=== PATIENT | female | born 1970 | race Caucasian/White ===

== ENCOUNTER 2024-08-10 08:56 | Emergency (ER) | payer OTHER, SELFPAY ==
--- OUTSIDE RECORDS SUMMARY | 2024-08-10 08:59 | XMS_ITS | Clinical Summary ---
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 120 mL 3 Active Active Problems No known active problems Immunizations Immunization Administration Dates Next Due Influenza, IIV4 01/17/2021,03/27/2018,02/19/2017 Influenza,CCIIV4 PRESERV FREE 02/10/2020 Td (Age >=7 Years) 03/27/2018 Tdap 04/09/2008 Family History Medical History Relation Name Comments Heart attack Brother 37yo Depression Child Coronary artery disease Father Diabetes Father Heart attack Father 36yo first hear t attack Diabetes Maternal Grandfather Leukemia Maternal Grandmother Throat cancer Maternal Grandmother decrea sed 68 No Known Problems Mother Relation Name Status Comments Brother Child Father Maternal Grandfather Maternal Grandmother Mother Social History Tobacco Use Types Packs/Day Years Used Date Smoking Tobacco: Former Smokeless Tobacco: Never Tobacco Cessation:Counseling Given: Yes Alcohol Use Standard Drinks/Week Comments Yes 0 (1 standard drink = 0.6 oz pur e alcohol) 3-4 per week PHQ-2 Answer Date Recorded PHQ-2 TOTAL SCORE 0 01/17/2021 Social Connections Answer Date Recorded Frequency of Communication with Friends and Fami ly Not on file 12/20/2023 Financial Resource Strain Answer Date R ecorded Difficulty of Paying Living Expenses 3 12/18/2022 Difficulty of Paying Living Expenses Not on file 12/18/2022 Food Insecurity Answer Date Recorded Worried About Running Out of Food in the Last Ye ar 1 12/18/2022 Transportation Needs Answer Date Record ed Lack of Transportation (Medical) 1 12/18/2022 Housing Stability Answer Date Recorded Unable to Pay for Housing in the Last Year 1 12/18/2022 Comments No Sex and Gender Information Value Date Recorded Sex Assigned at Not on file Legal Sex Female 7:00 AM [employer] Gender Identity Not on file Sexual Orientation Not on file Obstetrics History Last Filed Vital Signs Vital Sign Reading Time Taken Comments Blood Pressure 123/82 12/18/2022 2:11 PM CDT Pulse 95 12/18/2022 2:11 PM CDT Temperature 37.1 C (98.7 F) 12/18/2022 2:11 PM CDT Respiratory Rate 14 05/06/2019 2:01 PM [employer] Oxygen Saturation 97% 12/18/2022 2:11 PM CDT Inhaled Oxygen Concentration - - Weight 85.5 kg (188 lb 9.6 oz) 12/18/2022 2:11 P M CDT Height 155.4 cm (5' 1.18) 12/18/2022 2:11 PM CD T Body Mass Index 35.43 12/18/2022 2:11 PM CDT Plan of Treatment Health Maintenance Due Date Last Done Comments HIV for age 15-65 08/24/1987 Hepatitis C screening for ag e 18-79 1990 Colonoscopy through age 75 2017 Mammogram for age 45-75 2017 Depression screening for age 12+ 01/17/2022 01/17/2021, 05/23/2019, 05/23/2019, Additional history exists Pneumococcal series for age 50+ (1 of 1 - PCV) 2022 Zoster (shingles) series for age 50+ (1 of 2) 2022 BMI (ht and wt on same day) for age 18+ 12/19/2023 12/18/2022, 01/17/2021, 05/28/2019, Additional history exists COVID-19 vaccine series ( - season) 2023 03/30/2021, 08/18/2020, 07/16/2020 Influenza Vaccine (Season Ended) 2024 01/17/2021, 02/10/2020, 03/27/2018, Additional history exists Lipids for age 45-75 01/17/2026 01/17/2021, 03/27/20 18 Pap test for age 21-65 01/17/2026 , 01/17/2021, 03/27/2018 Tetanus booster 03/27/2028 03/27/2018, 04/09/2008 Tdap Completed 04/09/2008 Procedures Procedure Name Priority Date/Time Associated Diagnosis Comments LIPID PANEL W REFLEX MEASURED LDL Routine 01/17/2021 9:00 AM CDT Hyperlipidemia, unspecified hyperlipidemia type Family history of early CAD HPV HIGH RISK Routine 01/17/2021 8:49 AM CDT Cervical cancer screening from Last 3 Months or Most Recently Relevant to Health Maintenance Results * (ABNORMAL) LIPID PANEL W REFLEX MEASURED LDL (01/17/2021 9:00 AM CDT) CHOLESTEROL,TOTAL 394(H) 100 - 199 mg/dL 01/17/2021 6:21 PM CDT [facility] TRIGLYCERIDES 173(H) <150 mg/dL 01/17/2021 6:21 PM CDT [facility] HDL CHOLESTEROL 45 >40 mg/dL 6:21 PM CDT [facility] NON-HDL CHOLESTEROL 349(H) <145 mg/dl 01/17/2021 6:21 PM CDT [facility] CHOL/HDL RATIO 8.76(H) <4.50 01/17/2021 6:21 PM CDT [facility] LDL CHOLESTEROL 314(H) <=130 mg/dL 01/17/2021 6:21 PM CDT [facility] VLDL CHOLESTEROL 35(H) <=30 mg/dL 01/17/2021 6:21 PM CDT [facility] PROVIDER ORDERED STATUS RANDOM 01/17/2021 6:21 PM CDT [facility] Blood BLOOD SPECIMEN / Unknown Venipuncture / Unknown 01/17/2021 9:00 AM CDT 01/17/2021 9:00 AM CDT Monisha Domingo DO CHEMISTRY Final Resu lt [facility] [address] [place] [address], [place] * HPV HIGH RISK (01/17/2021 8:49 AM CDT) TYPE 16 Negative Negative 01/19/2021 11:39 AM CDT [facility] TYPE 18 Negative Negative 01/19/2021 11:39 AM CDT [facility] OTHER HIGH RISK TYPES Negative Negative 01/19/2021 11:39 AM CDT [facility] Other (Cervical) Non-Blood / Unknown 01/17/2021 8:49 AM CDT 01/17/2021 7:10 PM CDT Narrative [facility] - 01/19/2021 11:39 AM CDT HPV types 16, 18, 31, 33, 35, 39, 45, 51, 52, 56, 58, 59, 66 and 68 DNA were undetectable or below the pre-set threshold. Methodology: [employer] 4800 HPV Test Monisha Domingo DO MICROBIOLOGY Final Resu lt [facility] [address] [place] [address], [place] from Last 3 Months or Most Recently Relevant to Health Maintenance Insurance [employer] CHOICE [facility]
[2024-08-10 09:00] VITALS: BP 172/96; PULSE 112; RESP 18; TEMP 36.8; O2SAT 93; BMI 32.9
--- OUTSIDE RECORDS SUMMARY | 2024-08-10 09:54 | XMS_ITS | Clinical Summary ---
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 Gender Identity Not on file Sexual Orientation Not on file Obstetrics History Last Filed Vital Signs Vital Sign Reading Time Taken Comments Blood Pressure 123/82 12/18/2022 2:11 PM CDT Pulse 95 12/18/2022 2:11 PM CDT Temperature 37.1 C (98.7 F) 12/18/2022 2:11 PM CDT Respiratory Rate 14 05/06/2019 2:01 PM PROMOTIONS REPRESENTATIVE Oxygen Saturation 97% 12/18/2022 2:11 PM CDT [...] - 199 mg/dL 01/17/2021 6:21 PM CDT [facility] TRIGLYCERIDES 173(H) <150 mg/dL 01/17/2021 6:21 PM CDT [facility] HDL CHOLESTEROL 45 >40 mg/dL 6:21 PM CDT [facility] NON-HDL CHOLESTEROL 349(H) <145 mg/dl 01/17/2021 6:21 PM CDT [facility] CHOL/HDL RATIO 8.76(H) <4.50 01/17/2021 6:21 PM CDT [facility] LDL CHOLESTEROL 314(H) <=130 mg/dL 01/17/2021 6:21 PM CDT [facility] VLDL CHOLESTEROL 35(H) <=30 mg/dL 01/17/2021 6:21 PM CDT [facility] PROVIDER ORDERED STATUS RANDOM 01/17/2021 6:21 PM CDT [facility] Blood BLOOD SPECIMEN / Unknown Venipuncture / Unknown 01/17/2021 9:00 AM CDT 01/17/2021 9:00 AM CDT Monisha Domingo DO CHEMISTRY Final Resu lt [facility] [address] [place] [address], [place] * HPV HIGH RISK (01/17/2021 8:49 AM CDT) TYPE 16 Negative Negative 01/19/2021 11:39 AM CDT [facility] TYPE 18 Negative Negative 01/19/2021 11:39 AM CDT [facility] OTHER HIGH RISK TYPES Negative Negative 01/19/2021 11:39 AM CDT [facility] Other (Cervical) Non-Blood / Unknown 01/17/2021 8:49 AM CDT 01/17/2021 7:10 PM CDT Narrative [facility] - 01/19/2021 11:39 AM CDT HPV types 16, 18, 31, 33, 35, 39, 45, 51, 52, 56, 58, 59, 66 and 68 DNA were undetectable or below the pre-set threshold. Methodology: [employer] 4800 HPV Test Monisha Domingo DO MICROBIOLOGY Final Resu lt [facility] [address] [place] [address], [place] from Last 3 Months or Most Recently Relevant to Health Maintenance Insurance [employer] CHOICE [facility]
--- NOTE | 2024-08-10 10:05 | ED_ITS ---
HPI - General Adult General Chief complaint: Unspecified Complaint, Adult Stated complaint: swelling on right side of face Time Seen by Provider: 08/10/24 09:37 Source: patient Mode of arrival: ambulatory Limitations: no limitations History of Present Illness HPI narrative: 53-year-old female presenting today with right-sided facial swelling. She notices it started swelling yesterday and got significantly worse today. Patient complains of pain in her teeth on the upper jaw on the right side. She denies fevers or chills. No nausea or vomiting. No systemic symptoms. She has mild tenderness across the cheek and in front of the ear. No difficulty opening and closing her jaw or mouth. No difficulty breathing or swallowing. No swelling of the tongue or the back of the throat. No difficulty speaking. No changes in her vision or hearing. Related Data Previous Rx's ?Medication ?Instructions ?Recorded amoxicillin 875 mg-potassium 1 tab PO BID 7 days #14 tabs 08/10/24 clavulanate 125 mg tablet Allergies Allergy/AdvReac Type Severity Reaction Status Date / Time Sulfa (Sulfonamide Allergy Intermediate Hives Verified 05/28/23 13:22 Antibiotics) Review of Systems Status of ROS: Reports: 10 or more systems reviewed and unremarkable except as noted in History and below Exam Const: Vital Signs, click to edit/add: Vital Signs - 24 hr 08/10/24 09:00 Temperature 98.3 F Pulse Rate [Pulse Oximeter] 112 H Respiratory Rate 18 Blood Pressure [Ri ght Upper Arm] 172/96 H Pulse Oximetry 93 Oxygen Delivery Me thod Room Air Course Course ED Course: Well-nourished well-developed patient in no acute distress. Alert and oriented. Answers questions appropriately. Mood and affect are appropriate. Thoughts are goal oriented and rational. No tangential or magical thinking noted. Patie nt speaks in full sentences without needing to catch her breath. Voice sounds normal. HEENT: Atraumatic. Pupils are equally round reactive to light. Extraocular muscles are intact without discomfort. Conjunctivae are moist without any icterus noted. Moist mucous membranes. Posterior pharynx is normal. Neck is soft without any lymphadenopathy or thyromegaly. No masses are appreciated. No tongue or lip swelling. No swelling of the posterior pharynx. Patient has swelling around the right eye and across the cheek. She has very mild swelling of the lower face as well, she does not have edema of the lips. Patient has very poor dentition with several cracked teeth and exquisite tenderness to palpation of the teeth on the upper jaw on the right side. The gingiva are all red and swollen on that side. There is no pocket of fluctuance consistent with an abscess. She has no tenderness of the buccal mucosa or the cheek itself. Her TM is clear on that side with no pain of the outer or in her ear. She has no pain with pressure of the TMJ. No pain along the angle of the jaw. No lymphadenopathy or tenderness of the neck. Skin: Well perfused without any obvious rashes. Vital Signs Vital signs: Initial Vital Signs Temperature 98.3 F 08/10/24 09:00 Temperature Source Temporal Artery Scan 08/10/24 09:00 Pulse Rate 112 H 08/10/24 09:00 Respiratory Rate 18 08/10/24 09:00 Blood Pressure 172/96 H 08/10/24 09:00 Blood Pressure Mean 121 H 08/10/24 09:00 Blood Pressure Position Supine 08/10/24 09:00 Pulse Oximetry 93 08/10/24 09:00 Oxygen Delivery Method Room Air 08/10/24 09:00 Vital Signs Temperature 98.3 F 08/10/24 09:00 Pulse Rate 112 H 08/10/24 09:00 Respiratory Rate 18 08/10/24 09:00 Blood Pressure 172/96 H 08/10/24 09:00 Pulse Oximetry 93 08/10/24 09:00 Oxygen Delivery Method Room Air 08/10/24 09:00 Temperature 98.3 F 08/10/24 09:00 Pulse Rate 112 H 08/10/24 09:00 Respiratory Rate 18 08/10/24 09:00 Blood Pressure 172/96 H 08/10/24 09:00 Pulse Oximetry 93 08/10/24 09:00 Oxygen Delivery Method Room Air 08/10/24 09:00 Medical Decision Making MDM Narrative Medical decision making narrative: 53-year-old female with gingival infection and surrounding edema. I do not see any evidence of abscess formation. Given the appearance of the gums in the exquisite tenderness of the teeth I do think this is the source of her swelling. Does not appear to be any airway compromise. Patient received a dose of Unasyn while in the ED today and will be discharged home on Augmentin. Instructed to see the dentist this week. Discharge Plan Discharge Clinical Impression: Disease of gingiva due to infection, Facial swelling Patient Disposition: Home, Self-Care Condition: Stable Additional Instructions: Recommend Tylenol and/ibuprofen as needed for discomfort. Take as directed. Take all antibiotics as prescribed. You will need to see the dentist this week. If you develop difficulty breathing or swallowing, if you develop vomiting or a fever, then you should return to the emergency department Prescriptions: New amoxicillin-pot clavulanate 875-125 mg tablet 1 tab PO BID 7 Days Qty: 14 0RF Follow Up/Referrals: Monisha Domingo DO [Primary Care Provider] - Stand Alone Forms: [employer] Info Instructions
[2024-08-10] MEDS: AMPICILLIN/SULBACTAM 1.5 GM in 0.9 % SODIUM CHLORIDE Mini-bag 100 ML IVPB (10:11)
[2024-08-10] MEDS: KETOROLAC 30 MG/ML inj IVP (10:31)
== END 2024-08-10 11:03 | disposition home or self-care (01) ==
PROVIDERS: Emergency Provider Family Medicine; PCP Family Medicine
DX: K05.01 Acute gingivitis, non-plaque induced (principal)
CPT/HCPCS: 96365; 96375; 99283; 99284; J0295; J1885